=== PATIENT | male | born 1995 | race Hispanic/Latino ===

== ENCOUNTER 2019-03-03 11:36 | Emergency (ER) | payer OTHER ==
[~2019-03-03] VITALS: Ht 170.2 cm; Wt 68.3 kg
[~2019-03-03 11:36] MED LIST: DIFLUCAN100 MG PO; LANTUS SOL100 UNIT/1 SUB-Q; LANTUS100 UNITS/ SUB-Q; NORCO 5-325 TA1 EACH PO; NOVOLOG FL100 UNIT/1 SUB-Q; NOVOLOG100 UNITS/; NYSTATIN100000 UN1 PO; PERCOCET 7.5-31 EACH PO; PRILOSEC20 MG PO; PROMETHAZINE HC25 M1 PO; TOUJEO SOL300 UNIT/1 SUB-Q; TRAMADOL HCL50 MG PO; ULTRAM50 MG PO; VENTOLIN HFA18 GM INH; ZOFRAN ODT4 MG PO; ZOFRAN ODT8 MG PO
--- OUTSIDE RECORDS SUMMARY | 2019-03-03 11:42 | XMS ---
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 Care [facility] PHONE: [phone] Ramirez Lemons - Case or [employer] Lease Pumper Current [facility] PHONE: [phone] [facility] Primary Care Current PRIMARY CARE [facility] PHONE: Unknown [facility] Primary Care Current PHONE: Unknown Care Guidelines exist for the following facilities: [facility] ( 11/30/2018 ) Aime VISIT COUNT (12 MO.) 1 [facility] 1 [facility] TOTAL 2 NOTE: Visits indicate total known visits. ED/UCC VISIT TRACKING (12 MO.) 03/03/2019 11:37 [facility] [place] TYPE: Emergency COMPLAINT: - STOMACH PAIN, NAUSEA 03/02/2019 16:44 [facility] DIAGNOSES: - abd pain vomiting - Acute gastritis without bleeding INPATIENT VISIT TRACKING (12 MO.) No inpatient visits to display in this time frame [email or web address]
--- OUTSIDE RECORDS SUMMARY | 2019-03-03 16:12 | XMS | Clinical Summary ---
Demographics + + + | Address | [address] | | | [place] [address] | + + + | Home Phone | | + + + | Preferred Language | Unknown | + + + | Marital Status | Single | + + + | Jain Affiliation | 1041 | + + + | Race | Unknown | + + + | Ethnic Group | Unknown | + + + Author + + + | Author | [facility] (Historical as of | | | 01-09-19) | + + + | Organization | [facility] (Historical as of | | | 01-09-19) | + + + | Address | Unknown | + + + | Phone | Unavailable | + + + Support + + + + + | Name | Relationship | Address | Phone | + + + + + | Rubina Hutchinson "" | ECON | [place] | | | | | [address] | | + + + + + | Roberta Hughes | ECON | [address] | | | | | [place] [address] | | + + + + + Care Team Providers + +------+ + | Care Occupational Therapy Teacher Name | Role | Phone | + +------+ + | Tortsen Aranda PA-C | PP | | + +------+ + Allergies No Known Allergies Current Medications + + +-------+---------+------+------+-------+ | Prescription | Sig. | Disp. | Refills | Star | End | Statu | | | | | | t | Date | s | | | | | | Date | | | + + +-------+---------+------+------+-------+ | insulin glargine | Inject into the | | | | | Activ | | (LANTUS) 100 UNIT/ML | skin nightly. | | | | | e | | injection | | | | | | | + + +-------+---------+------+------+-------+ | insulin aspart | Inject into the | | | | | Activ | | (NOVOLOG) 100 | skin 3 (three) times | | | | | e | | UNIT/ML injection | daily before meals. | | | | | | + + +-------+---------+------+------+-------+ | Albuterol Sulfate | Inhale into the | | | | | Activ | | 108 (90 BASE) | lungs. | | | | | e | | MCG/ACT AEPB | | | | | | | + + +-------+---------+------+------+-------+ Active Problems Not on file Social History + +-------+ +--------+------+ | Tobacco Use | Types | Packs/Day | Years | Date | | | | | Used | | + +-------+ +--------+------+ | Never Assessed | | | | | + +-------+ +--------+------+ + + + | Sex Assigned at | Date Recorded | | | | + + + | Not on file | | + + + Last Filed Vital Signs + + + + | Vital Sign | Reading | Time Taken | + + + + | Blood Pressure | 91/54 | 01/27/2015 4:44 AM PDT | + + + + | Pulse | 76 | 01/27/2015 4:44 AM PDT | + + + + | Temperature | 36.7 C (98 F) | 01/27/2015 2:09 AM PDT | + + + + | Respiratory Rate | 16 | 01/27/2015 4:44 AM PDT | + + + + | Oxygen Saturation | 98% | 01/27/2015 4:44 AM PDT | + + + + | Inhaled Oxygen | - | - | | Concentration | | | + + + + | Weight | 60.1 kg (132 lb 7.9 | 01/26/2015 6:01 PM PDT | | | oz) | | + + + + | Height | - | - | + + + + | Body Mass Index | - | - | + + + + Plan of Treatment Not on file Results Not on filefrom Last 3 Months Insurance + +--------+ +------+-------+---------+ | Payer | Benefi | Subscriber | Type | Phone | Address | | | t Plan | ID | | | | | | / | | | | | | | Group | | | | | + +--------+ +------+-------+---------+ | [employer] | ODS | [id number] | | | | | | HEALTH | | | | | | | PLAN | | | | | + +--------+ +------+-------+---------+ + +--------+ +--------+ + + | Guarantor Name | Accoun | Relation to | Date | Phone | Billing Address | | | t Type | Patient | of | | | | | | | | | | + +--------+ +--------+ + + | VINCENT HUGHES | Person | Self [birth year] | Home: | [address] | | | al/Fam | | 1994 | [phone] [place] | | | [place] | | | [phone] | [address] | + +--------+ +--------+ + +
--- OUTSIDE RECORDS SUMMARY | 2019-03-03 16:13 | XMS | Clinical Summary ---
Demographics + + + | Address | [address] | | | [place] [address] | + + + | Home Phone | | + + + | Preferred Language | Unknown | + + + | Marital Status | Single | + + + | Cheondoism Affiliation | 1041 | + + + | Race | Unknown | + + + | Ethnic Group | Unknown | + + + Author + + + | Author | [facility] | | | and [place] | + + + | Organization | [facility] | | | and [place] | + + + | Address | Unknown | + + + | Phone | Unavailable | + + + Support + + + + + | Name | Relationship | Address | Phone | + + + + + | Roberta Wood | ECON | [address] | | | | | [place] [address] | | + + + + + Care Team Providers + +------+ + | Care Power Screwdriver Operator Name | Role | Phone | + +------+ + | Torsten Aranda | PCP | | + +------+ + Allergies No Known Allergies Medications + + + +---------+------+------+-------+ | Medication | Sig | Dispensed | Refills | Star | End | Statu | | | | | | t | Date | s | | | | | | Date | | | + + + +---------+------+------+-------+ | ondansetron | Take 4 mg by mouth | | 0 | | | Activ | | (ZOFRAN ODT) 4 mg | every 8 hours as | | | | | e | | disintegrating | needed for Nausea. | | | | | | | tablet | | | | | | | + + + +---------+------+------+-------+ | albuterol 90 | Inhale 2 puffs into | | 0 | | | Activ | | mcg/puff inhaler | the lungs as needed | | | | | e | | | for Wheezing. | | | | | | + + + +---------+------+------+-------+ | insulin glargine | Inject 36 Units | | 0 | | | Activ | | (LANTUS) 100 | under the skin | | | | | e | | units/mL injection | Daily. | | | | | | | (vial) | | | | | | | + + + +---------+------+------+-------+ | insulin aspart | Inject 2 Units under | | 0 | | | Activ | | (NOVOLOG FLEXPEN) | the skin EVERY 6 TO | | | | | e | | 100 units/mL | 8 HOURS NEEDED | | | | | | | injection pen | for High Blood | | | | | | | | Sugar. Per sliding | | | | | | | | scale 2U/10g Carbs | | | | | | + + + +---------+------+------+-------+ | omeprazole | Take 20 mg by mouth | | 0 | | | Activ | | (PRILOSEC) 20 mg | every morning | | | | | e | | capsule | (before breakfast). | | | | | | + + + +---------+------+------+-------+ | ondansetron | Take 1 tablet by | 2 | 0 | 07/2 | | Activ | | (ZOFRAN) 4 mg | mouth See Admin | tablet | | 7/20 | | e | | tabletIndications: | Instructions. If | | | 16 | | | | Nausea and vomiting, | nausea with prep. 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 | + + + + + | Diarrhea | 12/26/2015 | + + + | Rectal bleeding | 12/26/2015 | + + + | Epigastric abdominal pain | 12/26/2015 | + + + | Insulin dependent type 2 diabetes mellitus | 12/26/2015 | + + + Family History + + +------+ + | Medical History | Relation | Name | Comments | + + +------+ + | Diabetes | Father | | | + + +------+ + | Heart disease | Father | | | + + +------+ + | Hypertension | Father | | | + + +------+ + | Anemia | Mother | | | + + +------+ + + +------+--------+ + | Relation | Name | Status | Comments | + +------+--------+ + | Father | | | | + +------+--------+ + | Mother | | | | + +------+--------+ + Social History + +-------+ +--------+------+ | Tobacco Use | Types | Packs/Day | Years | Date | | | | | Used | | + +-------+ +--------+------+ | Never Smoker | | | | | + +-------+ +--------+------+ + +---+---+---+ | Smokeless Tobacco: | | | | | Never Used | | | | + +---+---+---+ + + +---------+ + | Alcohol Use | Drinks/We | oz/Week | Comments | | | ek | | | + + +---------+ + | No | 0 | 0.0 | | | | Standard | | | | | drinks or | | | | | | | | | | equivalen | | | | | t | | | + + +---------+ + + + + | Sex Assigned at | Date Recorded | | | | + + + | Not on file | | + + + + + + + | Job Start Date | Occupation | Industry | + + + + | Not on file | Not on file | Not on file | + + + + + + + + | Travel History | Travel Start | Travel End | + + + + + + | No recent travel history available. | + + Last Filed Vital Signs + + + + | Vital Sign | Reading | Time Taken | + + + + | Blood Pressure | 91/55 | 01/18/2016 1040 PDT | + + + + | Pulse | 52 | 01/18/2016 1040 PDT | + + + + | Temperature | 36 C (96.8 F) | 01/18/2016 0800 PDT | + + + + | Respiratory Rate | 12 | 01/18/20161039 PDT | + + + + | Oxygen Saturation | 98% | 01/18/20161039 PDT | + + + + | Inhaled Oxygen | - | - | | Concentration | | | + + + + | Weight | 60.8 kg (134 lb) | 01/18/2016799 PDT | + + + + | Height | 167.6 cm (5' 6") | 01/18/2016799 PDT | + + + + | Body Mass Index | 21.63 | 01/18/2016799 PDT | + + + + Plan of Treatment + + + + + | Health Maintenance | Due Date | Last Done | Comments | + + + + + | Vaccine: | | | | | Dtap/Tdap/Td (1 - | 2 | | | | Tdap) | | | | + + + + + | Vaccine: Influenza | | | | | (#1) | 9 | | | + + + + + Results Not on filefrom Last 3 Months Insurance +-------+--------+ +--------+ + +------+ | Payer | Benefi | Subscriber | Effect | Phone | Address | Type | | | t Plan | ID | erika | | | | | | / | | Dates | | | | | | Group | | | | | | +-------+--------+ +--------+ + +------+ | MODA | MODA | [id number] | | [phone] | [address] | PPO | | | [place] | | [phone] | | | | [place] | | esent | | [place] | | | | [place] | | | | [place] [address] | | +-------+--------+ +--------+ + +------+ + +--------+ +--------+ + + | Guarantor Name | Accoun | Relation to | Date | Phone | Billing Address | | | t Type | Patient | of | | | | | | | | | | + +--------+ +--------+ + + | Vincent Wood | Person | Self | [birth year] | | [address] | | | al/Fam | | 1994 | [phone] | [place] [address] | | | [place] | | | 3 (Home) | | + +--------+ +--------+ + + Advance Directives Patient has advance care planning documents on file. For more information, please contact:[facility] [place] [address]
--- OUTSIDE RECORDS SUMMARY | 2019-03-03 16:13 | XMS | Clinical Summary ---
Demographics + + + | Address | [address] | | | [place] [address] | + + + | Home Phone | | + + + | Preferred Language | Unknown | + + + | Marital Status | Single | + + + | Jain Affiliation | 1041 | + + + | Race | Unknown | + + + | Ethnic Group | Unknown | + + + Author + + + | Author | [facility] | | | and [place] | + + + | Organization | 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 For more information, please contact:[facility] [place] [address]
--- OUTSIDE RECORDS SUMMARY | 2019-03-03 16:13 | XMS | Clinical Summary ---
Demographics + + + | Address | [address] | | | [place] [address] | + + + | Home Phone | | + + + | Preferred Language | Unknown | + + + | Marital Status | Single | + + + | Synagogue Affiliation | 1041 | + + + | Race | Unknown | + + + | Ethnic Group | Unknown | + + + Author + + + | Author | [facility] (Historical as of | | | 01-09-19) | + + + | Organization | [facility] (Historical as of | | | 01-09-19) | + + + | Address | Unknown | + + + | Phone | Unavailable | + + + Support + + + + + | Name | Relationship | Address | Phone | + + + + + | Rubina Hutchinson "" | ECON | [place] | | | | | [address] | | + + + + + | Roberta Hughes | ECON | [address] | | | | | [place] [address] | | + + + + + Care Team Providers + +------+ + | Care Resource Development Manager Name | Role | Phone | + +------+ + | Torsten Aranda PA-C | PP | | + [...] | [employer] | ODS | [id number] | | | | | | HEALTH [...] | [place] | | | [address] | [address] | + +--------+ +--------+ + +
[2019-03-03] MEDS ORDERED: NORCO 7.5-3251 EACH PO (16:54)
[2019-03-03] MEDS ORDERED: REGLAN10 MG PO (16:54)
[2019-03-03] MEDS ORDERED: OMEPRAZOLE20 MG PO (16:54)
== END 2019-03-03 17:14 | disposition home or self-care (01) ==
LOC: ED 11:36
DX: K29.70 Gastritis, unspecified, without bleeding (principal); E11.9 Type 2 diabetes mellitus without complications; Z79.4 Long term (current) use of insulin
CPT/HCPCS: 80053; 81001; 83690; 83735; 85025; 96361; 96374; 96375; 96376; 99284-25; C9113; J1170; J2405; J2765; J7030

== ENCOUNTER 2021-04-08 15:58 | Emergency (ER) | payer OTHER ==
[~2021-04-08] VITALS: Ht 170.2 cm; Wt 68.3 kg
[~2021-04-08 15:58] MED LIST changes: +NORCO 7.5-3251 EACH PO; +OMEPRAZOLE20 MG PO; +REGLAN10 MG PO
--- OUTSIDE RECORDS SUMMARY | 2021-04-08 16:00 | XMS ---
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 ( 11/30/2018 ) Aime VISIT COUNT (12 MO.) [address] [place] [address] TOTAL 2 NOTE: Visits indicate total known visits. ED/UCC VISIT TRACKING (12 MO.) 04/08/2021 15:[address] [facility] TYPE: Emergency COMPLAINT: - RT NECK PAIN 04/07/2021 17:07 [facility] [place] TYPE: Emergency DIAGNOSES: - Occipital neuralgia - BACK AND NECK PAIN INPATIENT VISIT TRACKING (12 MO.) No inpatient visits to display in this time frame [id number]
[2021-04-08] MEDS ORDERED: TRAMADOL HCL50 MG PO (16:22)
[2021-04-08] MEDS ORDERED: ATIVAN1 MG PO (18:43)
== END 2021-04-08 19:30 | disposition home or self-care (01) ==
LOC: ED 15:58
DX: M54.2 Cervicalgia (principal); J45.909 Unspecified asthma, uncomplicated; E11.43 Type 2 diabetes mellitus with diabetic autonomic (poly)neuropathy; K31.84 Gastroparesis; Z90.49 Acquired absence of other specified parts of digestive tract; Z79.899 Other long term (current) drug therapy; Z79.4 Long term (current) use of insulin
CPT/HCPCS: 99283; A9270; A9270-GY